=== PATIENT | male | born 1995 | race Caucasian/White ===

== ENCOUNTER 2018-03-30 11:48 | Emergency (ER) | payer OTHER ==
[~2018-03-30] VITALS: Ht 188 cm; Wt 93.2 kg
[2018-03-30 11:51] VITALS: TEMP 98
[2018-03-30] MEDS ORDERED: NAUSEA MED (12:26)
[2018-03-30] MEDS ORDERED: XANAX 0.5MG0.5 MG PO (14:21)
[2018-03-30 14:29] VITALS: BP 132/85; PULSE 70
== END 2018-03-30 14:30 | disposition home or self-care (01) ==
LOC: COL.ER 11:48
DX: F41.0 Panic disorder [episodic paroxysmal anxiety] (principal); F12.90 Cannabis use, unspecified, uncomplicated; F32.9 Major depressive disorder, single episode, unspecified
CPT/HCPCS: J2405; J7030